=== PATIENT | female | born 1950 | race Caucasian/White ===

== ENCOUNTER → 2016-08-22 | Outpatient (CLI) | payer MEDICARE ==
[~2016-08-22] MED LIST: ASPI1TAB30 PO; ESTR0.5T PO; LEVO88TA4 PO; MORP30TA PO; MULT-750 PO; OMEP-110 PO; POTA10TA17 PO; RIZA10TA5 PO; VERA80TA2 PO
[2016-08-22 12:20] LABS: HEMOGLOBIN 15.3 g/dL (11.7-16.4)
== END | disposition home or self-care (01) ==
LOC: STAR 11:09
PROVIDERS: ATTEND Internal Medicine Gastroenterology
DX: Z01.818 Encounter for other preprocedural examination (principal); R00.1 Bradycardia, unspecified; R10.13 Epigastric pain; R93.3 Abnormal findings on diagnostic imaging of other parts of digestive tract
CPT/HCPCS: 36415; 85025; 93005

== ENCOUNTER → 2016-11-09 | Outpatient (CLI) | payer MEDICARE | END | disposition home or self-care (01) | LOC: CFH 09:11 | PROVIDERS: ATTEND Internal Medicine Gastroenterology | DX: R10.13 Epigastric pain (principal); T18.9XXD Foreign body of alimentary tract, part unspecified, subsequent encounter; R63.6 Underweight; Z98.890 Other specified postprocedural states; X58.XXXD Exposure to other specified factors, subsequent encounter | CPT/HCPCS: 74241 ==

== ENCOUNTER 2017-02-23 07:26 | Emergency (ER) | payer MEDICARE ==
[~2017-02-23] VITALS: Ht 167.6 cm; Wt 44.0 kg
[2017-02-23] MEDS ORDERED: POTA20TA89 PO (07:43)
[2017-02-23] MEDS ORDERED: KETOROLAC 30 MG/1 ML ONE (07:49)
[2017-02-23] MEDS ORDERED: DIPHENHYDRAMINE 50 MG/ML, 1ML ONE (07:49)
[2017-02-23] MEDS ORDERED: PROCHLORPERAZINE 5 MG/ML, 2ML ONE (07:49)
[2017-02-23] MEDS ORDERED: PROCHLORPERAZINE 5 MG/ML, 2ML IVPush ONE (08:00)
[2017-02-23] MEDS ORDERED: DIPHENHYDRAMINE 50 MG/ML, 1ML IVPush ONE (08:00)
[2017-02-23] MEDS ORDERED: SODIUM CHLORIDE FLUSH 10ML SYR IVF ONE (08:00)
[2017-02-23] MEDS ORDERED: SODIUM CHLORIDE 0.9% 1,000ML IVBOLUS ONE (08:00)
[2017-02-23] MEDS ORDERED: KETOROLAC 30 MG/1 ML IVPush ONE (08:00)
[2017-02-23 09:28] VITALS: BP 151/92
== END 2017-02-23 09:31 | disposition home or self-care (01) ==
LOC: ED 09:25
DX: G43.011 Migraine without aura, intractable, with status migrainosus (principal); Z87.891 Personal history of nicotine dependence
CPT/HCPCS: 96361; 96374; 96375; 99284; J0780; J1200; J1885; J7030

== ENCOUNTER → 2017-07-03 | Outpatient (CLI) | payer MEDICARE ==
[~2017-07-03] MED LIST changes: -ASPI1TAB30 PO; +ASPI1TAB31 PO; +POTA20TA89 PO
== END | disposition home or self-care (01) ==
LOC: CFH 11:57
PROVIDERS: ATTEND Internal Medicine
DX: D25.0 Submucous leiomyoma of uterus (principal); N93.9 Abnormal uterine and vaginal bleeding, unspecified
CPT/HCPCS: 76830

== ENCOUNTER → 2017-11-07 | Outpatient (CLI) | payer MEDICARE ==
[~2017-11-07] MED LIST changes: +ERGO500017 PO; +MELO15TA24 PO; +RIZA10TA34 PO
[2017-11-07 12:10] LABS: BASOPHILS # (AUTO) 0.03 x10^3/uL (0-0.1); BASOPHILS % (AUTO) 1 % (0-1); EOSINOPHILS # (AUTO) 0.17 x10^3/uL (0-0.4); EOSINOPHILS % (AUTO) 3 % (1-7); LYMPHOCYTES # (AUTO) 1.49 x10^3/uL (1-3.4); LYMPHOCYTES % (AUTO) 25 % (22-44); MD NO; MEAN CORPUSCULAR HEMOGLOBIN 28.4 pg (27.0-34.8); MEAN CORPUSCULAR HGB CONC 33.3 g/dL (32.4-35.8); MEAN CORPUSCULAR VOLUME 85.3 fL (80-100); MEAN PLATELET VOLUME 7.8 fL (7.4-10.4); MONOCYTES # (AUTO) 0.61 x10^3/uL (0.2-0.8); MONOCYTES % (AUTO) 10 % (2-9); NEUTROPHILS % (AUTO) 61 % (42-75); PLATELET COUNT 198 x10^3/uL (130-400); RED BLOOD COUNT 4.84 x10^6/uL (3.82-5.3); RED CELL DISTRIBUTION WIDTH 13.1 % (9.6-15.2)
[2017-11-07 12:17] LABS: ALANINE AMINOTRANSFERASE 30 U/L (12-78); ALBUMIN 3.2 g/dL (3.4-5.0); ANION GAP 10 mmol/L (5-15); CALCIUM 8.2 mg/dL (8.5-10.1); CHLORIDE 111 mmol/L (98-107); CREATININE 0.54 mg/dL (0.55-1.02)
[2017-11-07 12:19] LABS: ALKALINE PHOSPHATASE 76 U/L (45-117); BILIRUBIN,TOTAL 0.2 mg/dL (0.2-1.0); TOTAL PROTEIN 5.6 g/dL (6.4-8.2)
[2017-11-07 12:39] LABS: MICROSCOPIC AUTO
[2017-11-07 12:41] LABS: CULTURE INDICATED? NO
== END | disposition home or self-care (01) ==
LOC: STAR 10:46
PROVIDERS: ATTEND Obstetrics & Gynecology Female Pelvic Medicine and Reconstructive Surgery
DX: R94.31 Abnormal electrocardiogram [ECG] [EKG] (principal); N95.0 Postmenopausal bleeding; N94.6 Dysmenorrhea, unspecified
CPT/HCPCS: 36415; 80053; 81001; 85025; 93005

== ENCOUNTER 2017-11-13 09:41 | Day surgery (SDC) | payer MEDICARE ==
[~2017-11-13] VITALS: Ht 168.1 cm; Wt 48.2 kg
[~2017-11-13 09:41] MED LIST changes: +BUPIVACAINE/PF 0.25% ONE; +EPINEPHRINE 1 MG/ML, 1ML ONE; +NEOMY/POLYMYXIN B GU IRR. 1 ML IRRIG ONE
[2017-11-13] MEDS ORDERED: LACTATED RINGERS 1,000 ML IV SCH (10:08)
[2017-11-13 10:32] VITALS: BP 130/78
[2017-11-13] MEDS ORDERED: FENTANYL PF 100 MCG/2ML ONE ×3 (11:46→13:43)
[2017-11-13] MEDS ORDERED: SUCCINYLCHOLINE 20 MG/ML, 10ML ONE (11:47)
[2017-11-13] MEDS ORDERED: MIDAZOLAM 1 MG/ML, 2ML ONE (11:47)
[2017-11-13] MEDS ORDERED: LIDOCAINE-MPF 2% ,5ML ONE (11:48)
[2017-11-13] MEDS ORDERED: PROPOFOL 10 MG/ML, 20ML ONE (11:48)
[2017-11-13] MEDS ORDERED: WATER-INJECTION,STERILE 10 ML IV ONE (11:49)
[2017-11-13] MEDS ORDERED: METOCLOPRAMIDE 5 MG/ML, 2ML ONE (11:49)
[2017-11-13] MEDS ORDERED: DEXAMETHASONE 4 MG/ML, 1ML ONE (11:50)
[2017-11-13] MEDS ORDERED: ONDANSETRON 2MG/ML, 2ML ONE (11:50)
[2017-11-13] MEDS ORDERED: LIDOCAINE GEL 2%, 5ML ONE (11:56)
[2017-11-13] MEDS ORDERED: CEFAZOLIN 1,000 MG ONE (11:56)
[2017-11-13] MEDS ORDERED: OXYcodone 5 MG/5 ML ORAL.SOL UDC PO PRN (13:30)
[2017-11-13] MEDS ORDERED: ONDANSETRON 2MG/ML, 2ML IVPush PRN (13:30)
[2017-11-13] MEDS ORDERED: MEPERIDINE/PF 25MG/0.5ML IVPush PRN (13:30)
[2017-11-13] MEDS ORDERED: LABETALOL 5MG/ML, 20ML IV PRN (13:30)
[2017-11-13] MEDS ORDERED: MIDAZOLAM 1 MG/ML, 2ML IV PRN (13:30)
[2017-11-13] MEDS ORDERED: HYDROmorphone 2 MG/ML, 1ML ONE (13:44)
[2017-11-13] MEDS ORDERED: OXYcodone 5 MG/5 ML ORAL.SOL UDC ONE (13:44)
[2017-11-13] MEDS ORDERED: MEPERIDINE/PF 25MG/0.5ML ONE (13:44)
[2017-11-13] MEDS: FENTANYL PF 100 MCG/2ML IV PRN ×2 (13:52→14:15)
[2017-11-13] MEDS: HYDROmorphone 1 MG/ML, 1ML IV PRN ×4 (14:02→14:35)
[2017-11-13] MEDS ORDERED: BUPIVACAINE/PF 0.25% ONE (15:40)
[2017-11-13] MEDS ORDERED: EPINEPHRINE 1 MG/ML, 1ML ONE (15:42)
== END 2017-11-13 17:50 | disposition home or self-care (01) ==
LOC: OUT 09:41
PROVIDERS: ATTEND Obstetrics & Gynecology Female Pelvic Medicine and Reconstructive Surgery
DX: N95.0 Postmenopausal bleeding (principal); N81.89 Other female genital prolapse; N81.4 Uterovaginal prolapse, unspecified; N39.46 Mixed incontinence; G43.909 Migraine, unspecified, not intractable, without status migrainosus; K21.9 Gastro-esophageal reflux disease without esophagitis; Z87.39 Personal history of other diseases of the musculoskeletal system and connective tissue; E78.2 Mixed hyperlipidemia; E89.0 Postprocedural hypothyroidism; Z87.891 Personal history of nicotine dependence; Z98.890 Other specified postprocedural states
CPT/HCPCS: 57265; 57282; 57288; 58552; 88309; C1771; J0171; J0330; J0690; J1100; J1170; J2175; J2250; J2405; J2704; J2765; J3010; J3490; J7120; 88307

== ENCOUNTER 2017-11-14 00:15 | Inpatient (IN) | payer MEDICARE ==
[~2017-11-14] VITALS: Ht 167.6 cm; Wt 58.0 kg
[~2017-11-14 00:15] MED LIST changes: -BUPIVACAINE/PF 0.25% ONE; -EPINEPHRINE 1 MG/ML, 1ML ONE; -NEOMY/POLYMYXIN B GU IRR. 1 ML IRRIG ONE
[2017-11-14] MEDS ORDERED: PROMETHAZINE 25 MG/ML, 1ML ONE (00:22)
[2017-11-14] MEDS ORDERED: HYDROmorphone 2 MG/ML, 1ML ONE (00:22)
[2017-11-14] MEDS ORDERED: SODIUM CHLORIDE FLUSH 10ML SYR IVF ONE (00:30)
[2017-11-14] MEDS ORDERED: PROMETHAZINE 25 MG/ML, 1ML IM ONE (00:30)
[2017-11-14] MEDS ORDERED: HYDROmorphone 1 MG/ML, 1ML IVPush PRN (00:30)
[2017-11-14 00:37] LABS: BASOPHILS # (AUTO) 0.04 x10^3/uL (0-0.1); BASOPHILS % (AUTO) 0 % (0-1); EOSINOPHILS % (AUTO) 0 % (1-7); LYMPHOCYTES % (AUTO) 9 % (22-44); MD NO; MEAN CORPUSCULAR HEMOGLOBIN 27.6 pg (27.0-34.8); MEAN CORPUSCULAR HGB CONC 32.7 g/dL (32.4-35.8); MEAN CORPUSCULAR VOLUME 84.3 fL (80-100); MEAN PLATELET VOLUME 7.7 fL (7.4-10.4); MONOCYTES # (AUTO) 0.76 x10^3/uL (0.2-0.8); MONOCYTES % (AUTO) 8 % (2-9); NEUTROPHILS # (AUTO) 8.17 x10^3/uL (1.8-6.8); NEUTROPHILS % (AUTO) 83 % (42-75); PLATELET COUNT 214 x10^3/uL (130-400); RED BLOOD COUNT 4.83 x10^6/uL (3.82-5.3); RED CELL DISTRIBUTION WIDTH 13.3 % (9.6-15.2)
[2017-11-14 00:46] LABS: ALANINE AMINOTRANSFERASE 27 U/L (12-78); ALBUMIN 3.1 g/dL (3.4-5.0); ANION GAP 9 mmol/L (5-15); CALCIUM 8.2 mg/dL (8.5-10.1); CHLORIDE 102 mmol/L (98-107); CREATININE 0.67 mg/dL (0.55-1.02)
[2017-11-14 00:48] LABS: ALKALINE PHOSPHATASE 82 U/L (45-117); BILIRUBIN,TOTAL 0.5 mg/dL (0.2-1.0)
[2017-11-14] MEDS ORDERED: OMNIPAQUE 350 MG/ML, 100ML BOTTLE ONE (01:40)
[2017-11-14 04:05] VITALS: BP 152/93
[2017-11-14] MEDS ORDERED: HALOPERIDOL 5 MG/ML IV ONE (04:30)
[2017-11-14] MEDS ORDERED: D5%-0.9% NACL+KCL 20MEQ 1,000 ML IV SCH (04:30)
[2017-11-14] MEDS ORDERED: hydrALAzine 20 MG/ML, 1ML IVPush PRN (04:30)
[2017-11-14] MEDS ORDERED: LORazepam 2 MG/ML, 1ML IVPush PRN (04:30)
[2017-11-14] MEDS ORDERED: PROMETHAZINE 25 MG/ML, 1ML IM PRN (04:30)
[2017-11-14] MEDS: ONDANSETRON 2MG/ML, 2ML IVPush PRN ×3 (05:04→20:02)
[2017-11-14] MEDS: morphine SULFATE 10 MG/ML, 1ML IVPush PRN ×3 (05:21→20:51)
[2017-11-14 07:00] VITALS: BP 181/105
[2017-11-14 08:47] VITALS: BP 170/83
[2017-11-14] MEDS: PROCHLORPERAZINE 5 MG/ML, 2ML IV PRN (09:06)
[2017-11-14 12:18] VITALS: BP 169/90
[2017-11-14] MEDS ORDERED: ERGOCALCIFEROL 50,000 UNIT CAPSULE PO SCH (12:30)
[2017-11-14] MEDS ORDERED: BISACODYL 10 MG SUPP PR PRN (12:30)
[2017-11-14] MEDS: ACETAMINOPHEN 325 MG TABLET PO PRN ×2 (13:21→22:09)
[2017-11-14 18:51] VITALS: BP_SYST 163; BP_SYST 168; BP_DIAS 115; BP_DIAS 117
[2017-11-14 20:50] VITALS: BP 169/107
[2017-11-14] MEDS: D5%-0.9% NACL+KCL 20MEQ 1,000 ML IV SCH (20:59)
[2017-11-14] MEDS: OMEPRAZOLE 20 MG CAPSULE.DR PO SCH (22:09)
[2017-11-14] MEDS: VERAPAMIL 80MG TABLET PO SCH (22:09)
[2017-11-14] MEDS: DOCUSATE 100 MG CAPSULE PO SCH (22:09)
[2017-11-15 01:27] VITALS: BP 136/98
[2017-11-15] MEDS: morphine SULFATE 10 MG/ML, 1ML IVPush PRN ×5 (01:41→20:03)
[2017-11-15] MEDS: ONDANSETRON 2MG/ML, 2ML IVPush PRN ×3 (01:52→19:50)
[2017-11-15] MEDS ORDERED: D5%-0.9% NACL+KCL 20MEQ 1,000 ML IV SCH (04:30)
[2017-11-15] MEDS: PROCHLORPERAZINE 5 MG/ML, 2ML IV PRN (04:42)
[2017-11-15] MEDS: LEVOTHYROXINE 88 MCG TABLET PO SCH (05:08)
[2017-11-15 05:57] LABS: BASOPHILS # (AUTO) 0.02 x10^3/uL (0-0.1); BASOPHILS % (AUTO) 0 % (0-1); EOSINOPHILS % (AUTO) 0 % (1-7); LYMPHOCYTES # (AUTO) 0.75 x10^3/uL (1-3.4); LYMPHOCYTES % (AUTO) 10 % (22-44); MD NO; MEAN CORPUSCULAR HEMOGLOBIN 27.7 pg (27.0-34.8); MEAN CORPUSCULAR HGB CONC 32.9 g/dL (32.4-35.8); MEAN CORPUSCULAR VOLUME 84.4 fL (80-100); MEAN PLATELET VOLUME 7.4 fL (7.4-10.4); MONOCYTES # (AUTO) 0.86 x10^3/uL (0.2-0.8); MONOCYTES % (AUTO) 12 % (2-9); NEUTROPHILS % (AUTO) 78 % (42-75); PLATELET COUNT 249 x10^3/uL (130-400); RED BLOOD COUNT 5.01 x10^6/uL (3.82-5.3); RED CELL DISTRIBUTION WIDTH 13.3 % (9.6-15.2)
[2017-11-15 06:04] LABS: ANION GAP 9 mmol/L (5-15); CALCIUM 8.5 mg/dL (8.5-10.1); CHLORIDE 99 mmol/L (98-107)
[2017-11-15 06:16] LABS: CREATININE 0.56 mg/dL (0.55-1.02)
[2017-11-15] MEDS ORDERED: POTASSIUM PHOSPHATE 44 MEQ in SODIUM CHLORIDE 0.9% 500 ML IV ONE (07:30)
[2017-11-15] MEDS: D5%-0.9% NACL+KCL 20MEQ 1,000 ML IV SCH (07:46)
[2017-11-15] MEDS: VERAPAMIL 80MG TABLET PO SCH ×2 (07:47→21:26)
[2017-11-15] MEDS: POLYETHYLENE GLYCOL 17 GM PACKET PO SCH (07:47)
[2017-11-15] MEDS: OMEPRAZOLE 20 MG CAPSULE.DR PO SCH ×2 (07:47→21:26)
[2017-11-15] MEDS: DOCUSATE 100 MG CAPSULE PO SCH ×2 (07:47→21:26)
[2017-11-15 07:55] VITALS: BP 127/83
[2017-11-15] MEDS ORDERED: FENTANYL 25 MCG PATCH TD SCH (09:30)
[2017-11-15 12:57] VITALS: BP 127/86
[2017-11-15 20:00] VITALS: BP 135/95
[2017-11-16] MEDS: morphine SULFATE 10 MG/ML, 1ML IVPush PRN ×3 (02:28→17:04)
[2017-11-16] MEDS: PROCHLORPERAZINE 5 MG/ML, 2ML IV PRN ×2 (02:28→11:21)
[2017-11-16] MEDS: D5%-0.9% NACL+KCL 20MEQ 1,000 ML IV SCH ×3 (02:38→21:20)
[2017-11-16 03:39] VITALS: BP 122/85
[2017-11-16] MEDS: LEVOTHYROXINE 88 MCG TABLET PO SCH (05:35)
[2017-11-16 06:09] LABS: CHLORIDE 106 mmol/L (98-107)
[2017-11-16 06:16] LABS: ANION GAP 8 mmol/L (5-15); CALCIUM 8.3 mg/dL (8.5-10.1); CREATININE 0.52 mg/dL (0.55-1.02)
[2017-11-16 07:04] VITALS: BP 134/83
[2017-11-16] MEDS ORDERED: POTASSIUM PHOSPHATE 44 MEQ in SODIUM CHLORIDE 0.9% 500 ML IV ONE (07:30)
[2017-11-16] MEDS: OMEPRAZOLE 20 MG CAPSULE.DR PO SCH ×2 (08:46→21:20)
[2017-11-16] MEDS: DOCUSATE 100 MG CAPSULE PO SCH ×2 (08:46→21:19)
[2017-11-16] MEDS: VERAPAMIL 80MG TABLET PO SCH ×2 (08:47→21:19)
[2017-11-16] MEDS: ONDANSETRON 2MG/ML, 2ML IVPush PRN ×2 (08:47→17:04)
[2017-11-16] MEDS: POLYETHYLENE GLYCOL 17 GM PACKET PO SCH (09:00)
[2017-11-16 12:40] VITALS: BP 130/82
[2017-11-16 19:08] VITALS: BP 142/81
[2017-11-17 00:28] VITALS: BP 130/85
[2017-11-17] MEDS: OXYcodone/APAP 7.5/325MG TABLET PO PRN ×2 (03:44→08:18)
[2017-11-17] MEDS: D5%-0.9% NACL+KCL 20MEQ 1,000 ML IV SCH (06:05)
[2017-11-17] MEDS: LEVOTHYROXINE 88 MCG TABLET PO SCH (06:05)
[2017-11-17 06:32] LABS: ANION GAP 4 mmol/L (5-15); CALCIUM 8.1 mg/dL (8.5-10.1); CHLORIDE 105 mmol/L (98-107)
[2017-11-17 06:33] LABS: CREATININE 0.54 mg/dL (0.55-1.02)
[2017-11-17 07:25] VITALS: BP 152/90
[2017-11-17] MEDS: DOCUSATE 100 MG CAPSULE PO SCH (08:18)
[2017-11-17] MEDS: POLYETHYLENE GLYCOL 17 GM PACKET PO SCH (08:18)
[2017-11-17] MEDS: VERAPAMIL 80MG TABLET PO SCH (08:18)
[2017-11-17] MEDS: OMEPRAZOLE 20 MG CAPSULE.DR PO SCH (08:18)
[2017-11-17] MEDS ORDERED: MORP30TA3 PO (08:37)
[2017-11-17] MEDS ORDERED: ONDA4TAB10 PO (08:37)
[2017-11-18] MEDS ORDERED: FENTANYL REMOVE PATCH NOTE XX SCH (09:30)
== END 2017-11-17 12:27 | disposition home or self-care (01) | DRG 897 ==
LOC: ED 02:59 → EDIP 03:15 → 4WST 03:57 → DCLOUNGE 11-17 12:16
PROVIDERS: ADMIT Hospitalist; ATTEND Hospitalist
DX: F11.23 Opioid dependence with withdrawal (principal); R10.2 Pelvic and perineal pain; R11.2 Nausea with vomiting, unspecified; N95.0 Postmenopausal bleeding; E86.9 Volume depletion, unspecified; K59.00 Constipation, unspecified; K21.9 Gastro-esophageal reflux disease without esophagitis; K66.8 Other specified disorders of peritoneum; M19.90 Unspecified osteoarthritis, unspecified site; E21.3 Hyperparathyroidism, unspecified; E03.9 Hypothyroidism, unspecified; N39.46 Mixed incontinence; E55.9 Vitamin D deficiency, unspecified; G43.909 Migraine, unspecified, not intractable, without status migrainosus; F12.90 Cannabis use, unspecified, uncomplicated; G89.4 Chronic pain syndrome; I10 Essential (primary) hypertension; M81.0 Age-related osteoporosis without current pathological fracture; N81.3 Complete uterovaginal prolapse; Z87.891 Personal history of nicotine dependence; Z90.710 Acquired absence of both cervix and uterus; K80.20 Calculus of gallbladder without cholecystitis without obstruction; M54.9 Dorsalgia, unspecified
CPT/HCPCS: 36415; 74177; 80048; 80053; 83690; 83735; 84100; 85025; 96372; 96374; 96375; J2405; J2550; Q9967; J0360; J0780; J2270; J3480; J7040

== ENCOUNTER → 2018-10-05 | Outpatient (CLI) | payer MEDICARE, MEDICAID ==
[~2018-10-05] MED LIST changes: +CALC500T93 PO; +CHOL100012 PO; +DENO60DI INJ; +EREN70AU2 INJ; +MORP15TA PO; +MORP30TA3 PO; +ONDA4TAB10 PO; +POTA10TA31 PO; +VITA1TAB28 PO
== END | disposition home or self-care (01) ==
LOC: STAR 14:03
PROVIDERS: ATTEND Internal Medicine Gastroenterology
DX: R94.31 Abnormal electrocardiogram [ECG] [EKG] (principal); K21.9 Gastro-esophageal reflux disease without esophagitis; R10.13 Epigastric pain
CPT/HCPCS: 93005

== ENCOUNTER 2018-10-10 06:30 | Day surgery (SDC) | payer MEDICARE, MEDICAID ==
[~2018-10-10] VITALS: Ht 167.6 cm; Wt 52.2 kg
[2018-10-10] MEDS ORDERED: LACTATED RINGERS 1,000 ML IV SCH (07:15)
[2018-10-10 07:16] VITALS: BP 111/80
[2018-10-10] MEDS ORDERED: LIDOCAINE-MPF 1%, 2ML ONE (07:22)
[2018-10-10] MEDS ORDERED: LIDOCAINE-MPF 1%, 2ML INFIL ONE (07:30)
[2018-10-10] MEDS ORDERED: PROPOFOL 10 MG/ML, 20ML ONE (08:40)
[2018-10-10] MEDS ORDERED: SUCCINYLCHOLINE 20 MG/ML, 10ML ONE (08:40)
[2018-10-10] MEDS ORDERED: FENTANYL PF 100 MCG/2ML ONE (09:52)
[2018-10-10] MEDS ORDERED: METOCLOPRAMIDE 5 MG/ML, 2ML IV PRN (10:00)
[2018-10-10] MEDS ORDERED: ONDANSETRON 2MG/ML, 2ML IV PRN (10:00)
[2018-10-10] MEDS ORDERED: FENTANYL PF 100 MCG/2ML IV PRN (10:00)
[2018-10-10] MEDS ORDERED: MORPHINE SULFATE 4 MG/ML, 1ML IVPush PRN (10:00)
[2018-10-10] MEDS ORDERED: OXYcodone 5 MG/5 ML ORAL.SOL UDC PO PRN (10:00)
== END 2018-10-10 11:05 | disposition home or self-care (01) ==
LOC: OUT 06:30
PROVIDERS: ATTEND Internal Medicine Gastroenterology
DX: K21.9 Gastro-esophageal reflux disease without esophagitis (principal); K52.9 Noninfective gastroenteritis and colitis, unspecified; K25.4 Chronic or unspecified gastric ulcer with hemorrhage; K30 Functional dyspepsia; K31.89 Other diseases of stomach and duodenum; F11.10 Opioid abuse, uncomplicated; Z98.0 Intestinal bypass and anastomosis status; Z88.8 Allergy status to other drugs, medicaments and biological substances
CPT/HCPCS: 43249; 43251; C1725; J0330; J2704; J3010

== ENCOUNTER → 2020-06-11 | Outpatient (CLI) | payer MEDICARE, MEDICAID, OTHER ==
[~2020-06-11] MED LIST changes: +MORP-30 PO; -MORP30TA3 PO; +OMNIPAQUE 350 MG/ML, 100ML BOTTLE ONE; -VERA80TA2 PO; +VERA80TA25 PO
== END | disposition home or self-care (01) ==
LOC: CFH 11:55
PROVIDERS: ATTEND Physician Assistant
DX: C54.1 Malignant neoplasm of endometrium (principal); I72.9 Aneurysm of unspecified site; K56.699 Other intestinal obstruction unspecified as to partial versus complete obstruction; R19.09 Other intra-abdominal and pelvic swelling, mass and lump; I77.810 Thoracic aortic ectasia; J43.2 Centrilobular emphysema
CPT/HCPCS: 71260; 74177; Q9967

== ENCOUNTER → 2020-08-25 | Outpatient (CLI) | payer MEDICARE, MEDICAID, OTHER | END | disposition home or self-care (01) | LOC: CFH 13:58 | PROVIDERS: ATTEND Specialist | DX: C54.1 Malignant neoplasm of endometrium (principal); N28.1 Cyst of kidney, acquired; M51.36 Other intervertebral disc degeneration, lumbar region; R91.1 Solitary pulmonary nodule; J43.2 Centrilobular emphysema; J98.4 Other disorders of lung; I77.810 Thoracic aortic ectasia; M85.88 Other specified disorders of bone density and structure, other site; M43.8X4 Other specified deforming dorsopathies, thoracic region | CPT/HCPCS: 71260; 74177; Q9967 ==

== ENCOUNTER → 2020-10-19 | Outpatient (CLI) | payer MEDICARE, MEDICAID ==
[~2020-10-19] MED LIST changes: +MULT-482 PO; -MULT-750 PO; -OMNIPAQUE 350 MG/ML, 100ML BOTTLE ONE
== END | disposition home or self-care (01) ==
LOC: CVU 14:02
PROVIDERS: ATTEND Internal Medicine
DX: I73.9 Peripheral vascular disease, unspecified (principal)
CPT/HCPCS: 93922